=== PATIENT | male | born 1990 | race Caucasian/White ===

== ENCOUNTER 2017-11-25 08:57 | Emergency (ER) | payer MEDICAID ==
[~2017-11-25] VITALS: Ht 175.3 cm; Wt 81.6 kg
[2017-11-25 09:02] VITALS: Ht 175.3 cm; Wt 81.6 kg
[2017-11-25 11:48] VITALS: BP 122/83
== END 2017-11-25 11:48 | disposition home or self-care (01) ==
LOC: ED 08:57
DX: F07.81 Postconcussional syndrome (principal)
CPT/HCPCS: J1170; J1885; Q0162